=== PATIENT | female | born 2000 | race Hispanic/Latino ===

== ENCOUNTER 2022-06-30 12:01 | Outpatient (CLI) | payer OTHER | END 2022-06-30 12:02 | disposition home or self-care (01) | LOC: BICULT 12:01 | PROVIDERS: ATTEND Family Medicine | DX: Z34.02 Encounter for supervision of normal first pregnancy, second trimester (principal); Z3A.26 26 weeks gestation of pregnancy | CPT/HCPCS: 76805 ==